=== PATIENT | male | born 1995 | race Caucasian/White ===

== ENCOUNTER → 2023-11-05 09:47 | Outpatient (REF) | payer OTHER, SELFPAY | LOC: RAD 09:47 | PROVIDERS: ATTENDING PHYSICIAN Physician Assistant Medical | DX: N50.89 Other specified disorders of the male genital organs (principal) | CPT/HCPCS: 76870; 93976 ==

== ENCOUNTER 2024-02-19 11:59 | Outpatient (RCR) | payer OTHER, SELFPAY | END 2024-02-19 23:59 | disposition home or self-care (01) | LOC: ROT 11:59 | PROVIDERS: ATTENDING PHYSICIAN Physician Assistant Medical | DX: M24.542 Contracture, left hand (principal); Z73.6 Limitation of activities due to disability | CPT/HCPCS: 97010; 97110; 97166; 97535; 97760 ==

== ENCOUNTER 2024-03-11 13:09 | Outpatient (RCR) | payer OTHER, SELFPAY | END 2024-03-11 23:59 | disposition home or self-care (01) | LOC: ROT 13:09 | PROVIDERS: ATTENDING PHYSICIAN Physician Assistant Medical | DX: M24.542 Contracture, left hand (principal); Z73.6 Limitation of activities due to disability | CPT/HCPCS: 97010; 97140; 97535 ==

== ENCOUNTER → 2025-01-05 13:40 | Outpatient (REF) | payer OTHER, SELFPAY | LOC: HWRAD 13:40 | PROVIDERS: ATTENDING PHYSICIAN Otolaryngology; FAMILY PHYSICIAN Physician Assistant Medical | DX: K11.20 Sialoadenitis, unspecified (principal) | CPT/HCPCS: 70490 ==